=== PATIENT | female | born 1985 | race African-American/Black ===

== ENCOUNTER 2019-04-26 13:27 | Emergency (ER) | payer MEDICAID ==
[~2019-04-26] VITALS: Ht 172.7 cm; Wt 63.5 kg
[2019-04-26 13:27] VITALS: BP 163/107
--- NOTE | 2019-04-26 13:27 | NUR ---
33/F brought in by ambulance from home, c/o multiple n/v since last night. Reports eating tacos from [employer]. Pt afebrile, denies diarrhea. Pt awake and alert, skin normal color warm and dry, with activing n/v with facial grimacing, rr even and unlabored. Lung sounds clear BL. BS active x4, abd soft flat nontender. Hx cyclic vomiting syndrome (last episode 2 years ago); cannabinoid use (reports not today) denies rx
--- NOTE | 2019-04-26 13:27 | NUR ---
Patient BIBA BLS, transferred to bed 3. RN evaluating patient at bedside.
--- NOTE | 2019-04-26 14:30 | NUR ---
PT IS RESTING IN THE BED W/ VSS. PT IS ON THE MONITOR.
[2019-04-26] MEDS ORDERED: NACL 0.9% 1,000 ML IV SCH (15:06)
[2019-04-26] MEDS ORDERED: MORPHINE SULFATE 4 MG/ML SYR IVP ONE ×2 (15:10→17:50)
[2019-04-26] MEDS ORDERED: LORazepam 2 MG/ML VIAL IVP ONE (15:10)
[2019-04-26] MEDS ORDERED: ONDANSETRON 4 MG/2 ML VIAL IVP ONE ×2 (15:10→17:40)
--- NOTE | 2019-04-26 15:42 | NUR ---
RESPIRATORY CARE ASSISTANT AT BEDSIDE
--- NOTE | 2019-04-26 15:55 | NUR ---
PT STATES FEELING BETTER AT THIS TIME.
[2019-04-26 16:01] LABS: BASOPHILS % (AUTO) 0.4 % (0.0-2.0); HEMATOCRIT 40.7 % (36-48); HEMOGLOBIN 13.8 g/dL (12.0-16.0); LYMPHOCYTES # (AUTO) 0.7 K/uL (2.5-16.5); LYMPHOCYTES % (AUTO) 9.5 % (20.5-51.1); MEAN CORPUSCULAR HEMOGLOBIN 30 pg (27-31); MEAN CORPUSCULAR HGB CONC 34 g/dL (33-37); MEAN CORPUSCULAR VOLUME 88.1 fL (80-94); MONOCYTES # (AUTO) 0.4 K/uL (0.8-1.0); MONOCYTES % (AUTO) 5.8 % (1.7-9.3); NEUTROPHILS # (AUTO) 6.4 K/uL (1.8-7.7); NEUTROPHILS % (AUTO) 84.3 % (42.2-75.2); PLATELET COUNT (AUTO) 210 K/uL (140-450); RED BLOOD CELL COUNT(AUTO) 4.62 MIL/uL (4.20-5.40); RED CELL DISTRIBUTION WIDTH 13.7 % (11.6-13.7); WHITE BLOOD COUNT (AUTO) 7.5 K/uL (4.8-10.8)
[2019-04-26 16:02] LABS: APPEARANCE,URINE CLEAR (CLEAR); BILIRUBIN,URINE NEGATIVE (NEGATIVE); BLOOD, URINE NEGATIVE (NEGATIVE); COLOR,URINE YELLOW (YELLOW); LEUKOCYTE ESTERASE ,URINE NEGATIVE (NEGATIVE); NITRITE, URINE NEGATIVE (NEGATIVE); UGLUCOSE NEGATIVE (NEGATIVE)
[2019-04-26 16:17] LABS: ALBUMIN 4.2 g/dL (3.4-5.0); CARBON DIOXIDE 24.8 mmol/L (21-32); CREATININE 0.9 mg/dL (0.6-1.3); POTASSIUM 3.8 mmol/L (3.5-5.1); TOTAL BILIRUBIN 0.4 mg/dL (0.0-1.0)
--- NOTE | 2019-04-26 17:00 | NUR ---
PT IS RESTING IN THE BED WI/ VSS. PT IS ON MONITOR.
[2019-04-26] MEDS ORDERED: ONDANSETRON 4 MG/2 ML VIAL ONE (17:39)
[2019-04-26] MEDS ORDERED: MORPHINE SULFATE 4 MG/ML SYR ONE (17:49)
[2019-04-26 18:10] VITALS: BP 157/103
--- NOTE | 2019-04-26 18:10 | NUR ---
Patient discharged with v/s stable. Written and verbal after care instructions given and explained. Patient alert, oriented and verbalized understanding of instructions. Ambulatory with steady gait. All questions addressed prior to discharge. ID band removed. Patient advised to follow up with PMD. Rx of Zofran, Phenergan, and Ativan given. Patient educated on indication of medication including possible reaction and side effects. Opportunity to ask questions provided and answered.
== END 2019-04-26 18:10 | disposition home or self-care (01) ==
LOC: MERGE 13:27 → MED 13:27
DX: R11.2 Nausea with vomiting, unspecified (principal); R10.9 Unspecified abdominal pain; R30.0 Dysuria; F17.210 Nicotine dependence, cigarettes, uncomplicated; Z98.890 Other specified postprocedural states
CPT/HCPCS: 36415; 80053; 81003; 81025; 83690; 85025; 96361; 96374; 96375; 96376; 99284; J2060; J2270; J2405; J7030

== ENCOUNTER 2019-07-03 16:34 | Emergency (ER) | payer OTHER, SELFPAY ==
[~2019-07-03] VITALS: Ht 172.7 cm; Wt 72.6 kg
[2019-07-03 16:39] VITALS: BP 183/110
--- NOTE | 2019-07-03 16:45 | NUR ---
PT C/O ABD PAIN X2 DAYS WITH NAUSEA AND VOMITING. PTS STATES SHE HAS SUBJECTIVE FEVER; AFEBRILE AT THIS TIME. PT STATES SHE TOOK ZOFRAN THIS MORNING. PATIENT STATES PAIN OF 10/10 AT THIS TIME; VSS; PATIENT POSITIONED FOR COMFORT; HOB ELEVATED; BEDRAILS UP X2; BED DOWN. ER MADE AWARE OF PT STATUS. PT IS ON THE MONITOR IN THE ISOLATION ROOM. Addendum: 07/03/19 at 1919 by Amadesa PT DENIES COUGH, SORE THROAT, RUNNY NOSE, CP, SOB, OR DIARRHEA. 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
--- NOTE | 2019-07-03 17:04 | NUR ---
PT EVALUATED BY PA
[2019-07-03] MEDS ORDERED: NACL 0.9% 1,000 ML IV ONE (17:05)
[2019-07-03] MEDS: METOCLOPRAMIDE 10 MG/2 ML INJ VIAL IVP ONE ×2 (17:05→18:26)
[2019-07-03] MEDS: KETOROLAC 30 MG/ML VIAL IVP ONE ×2 (17:15→18:26)
--- NOTE | 2019-07-03 17:42 | NUR ---
COVID SWAB OBTAINED AT BEDSIDE AND SENT TO THE LAB WITH PUI PAPERWORK.
[2019-07-03 17:44] LABS: BASOPHILS % (AUTO) 0.4 % (0.0-2.0); EOSINOPHILS % (AUTO) 0.2 % (0.0-4.0); HEMATOCRIT 46.6 % (36-48); HEMOGLOBIN 15.5 g/dL (12.0-16.0); LYMPHOCYTES % (AUTO) 8.9 % (20.5-51.1); MEAN CORPUSCULAR HEMOGLOBIN 30 pg (27-31); MEAN CORPUSCULAR HGB CONC 33 g/dL (33-37); MEAN CORPUSCULAR VOLUME 91.2 fL (80-94); MONOCYTES # (AUTO) 0.6 K/uL (0.8-1.0); MONOCYTES % (AUTO) 5.2 % (1.7-9.3); NEUTROPHILS # (AUTO) 9.5 K/uL (1.8-7.7); NEUTROPHILS % (AUTO) 85.3 % (42.2-75.2); PLATELET COUNT (AUTO) 296 K/uL (140-450); RED BLOOD CELL COUNT(AUTO) 5.12 MIL/uL (4.20-5.40); RED CELL DISTRIBUTION WIDTH 14.7 % (11.6-13.7); WHITE BLOOD COUNT (AUTO) 11.1 K/uL (4.8-10.8)
--- NOTE | 2019-07-03 17:51 | NUR ---
EKG PERFORMED AT BEDSIDE
[2019-07-03 18:08] LABS: ANION GAP 19.8 (8-16); CARBON DIOXIDE 21.8 mmol/L (21-32); CREATININE 0.9 mg/dL (0.6-1.3); POTASSIUM 3.6 mmol/L (3.5-5.1); TOTAL BILIRUBIN 0.6 mg/dL (0.0-1.0)
[2019-07-03] MEDS ORDERED: HALOPERIDOL IM 5 MG/ML VIAL IM ONE (18:15)
[2019-07-03] MEDS ORDERED: MORPHINE SULFATE 2 MG/ML SYR IVP ONE (19:00)
[2019-07-03] MEDS ORDERED: ACETAMINOPHEN EXTRA STRENGTH 500 MG TAB PO ONE (19:00)
--- NOTE | 2019-07-03 19:00 | NUR ---
PT HAS FEVER 100.1 BP 168/115 MMHG, AND STATES SHE HAS 10/10 LOWER ABDOMINAL PAIN. TANISHA CACERES NOTIFIED.
--- NOTE | 2019-07-03 19:19 | NUR ---
Pt report given to YENNY Olson. Transfer of care at this time.
--- NOTE | 2019-07-03 19:19 | NUR ---
REPORT RECEIVED FROM CLEOPATRA RAMON, TRANSFER OF CARE AT THIS TIME
[2019-07-03 19:29] LABS: APPEARANCE,URINE CLEAR (CLEAR); BILIRUBIN,URINE NEGATIVE (NEGATIVE); BLOOD, URINE NEGATIVE (NEGATIVE); COLOR,URINE YELLOW (YELLOW); LEUKOCYTE ESTERASE ,URINE NEGATIVE (NEGATIVE); NITRITE, URINE NEGATIVE (NEGATIVE); UGLUCOSE NEGATIVE (NEGATIVE)
--- NOTE | 2019-07-03 21:03 | NUR ---
PT IS RESTING IN BED, PAIN LEVEL REPORTED 3/10, PT CONTINUES TO FEEL NAUSEOUS. VSS. ABLE TO AMBULATE BUT FEELS WEAK.
[2019-07-03 21:07] VITALS: BP 141/105
--- NOTE | 2019-07-06 03:56 | NUR ---
Lab called for pt SARS-Cov-2 result, negative. Pt lab result shown to Dr Zhao and advise to forward the lab result to the infection control box/done.
== END 2019-07-03 21:08 | disposition home or self-care (01) ==
LOC: EEVIPCON 16:34 → MED 16:34
DX: R11.15 Cyclical vomiting syndrome unrelated to migraine (principal); R11.2 Nausea with vomiting, unspecified; R10.9 Unspecified abdominal pain; I10 Essential (primary) hypertension; Z20.828 Contact with and (suspected) exposure to other viral communicable diseases; Z98.890 Other specified postprocedural states
CPT/HCPCS: 36415; 80053; 81003; 81025; 83690; 84702; 85025; 87635; 93005; 96361; 96372; 96374; 96375; 99284; J1630; J1885; J2270; J2765; J7030

== ENCOUNTER 2019-07-18 12:07 | Emergency (ER) | payer OTHER, SELFPAY ==
[~2019-07-18] VITALS: Ht 172.7 cm; Wt 63.5 kg
[2019-07-18 12:12] VITALS: BP 132/77
[2019-07-18 13:12] VITALS: BP 132/77
== END 2019-07-18 13:12 | disposition home or self-care (01) ==
LOC: MED 12:07
DX: S01.81XA Laceration without foreign body of other part of head, initial encounter (principal); I10 Essential (primary) hypertension; Z98.890 Other specified postprocedural states; W19.XXXA Unspecified fall, initial encounter; Y93.89 Activity, other specified; Y92.89 Other specified places as the place of occurrence of the external cause; Y99.8 Other external cause status
CPT/HCPCS: 90471; 90715; 99283

== ENCOUNTER 2019-07-18 17:27 | Emergency (ER) | payer OTHER, SELFPAY ==
[~2019-07-18] VITALS: Ht 172.7 cm; Wt 63.5 kg
[2019-07-18 17:34] VITALS: BP 124/68
[2019-07-18] MEDS ORDERED: BACITRACIN OINT 500 UNITS/GM PKT TP ONE (19:50)
[2019-07-18 20:20] VITALS: BP 124/68
== END 2019-07-18 20:20 | disposition home or self-care (01) ==
LOC: MED 17:27
DX: S01.81XA Laceration without foreign body of other part of head, initial encounter (principal); I10 Essential (primary) hypertension; Z48.00 Encounter for change or removal of nonsurgical wound dressing; X58.XXXA Exposure to other specified factors, initial encounter; Y93.89 Activity, other specified; Y92.89 Other specified places as the place of occurrence of the external cause; Y99.8 Other external cause status
CPT/HCPCS: 99283

== ENCOUNTER 2019-09-16 10:45 | Emergency (ER) | payer OTHER, SELFPAY ==
[~2019-09-16] VITALS: Ht 172.7 cm; Wt 59.0 kg
[2019-09-16] MEDS ORDERED: NACL 0.9% 1,000 ML IV ONE (10:49)
[2019-09-16 10:50] VITALS: BP 233/126
[2019-09-16] MEDS ORDERED: LORazepam 2 MG/ML VIAL IVP ONE (10:50)
[2019-09-16] MEDS ORDERED: HALOPERIDOL IM 5 MG/ML VIAL IM ONE (10:50)
--- NOTE | 2019-09-16 10:57 | NUR ---
Patient being evaluated by DR STANFORD at TRIAGE ROOM.
--- NOTE | 2019-09-16 11:00 | NUR ---
VOMITING AND UNABLE TO GET FULL TRIAGE ASSESSMENT. PT WAS NOT ANSWERING ALL QUESTIONS.
--- NOTE | 2019-09-16 11:00 | NUR ---
PT WHEELCHAIRED TO BED 6
--- NOTE | 2019-09-16 11:02 | NUR ---
assistant nurse manager at bedside for blood draw
--- NOTE | 2019-09-16 11:05 | NUR ---
PT STATES UNABLE TO URINATE, ERMD MADE AWARE
--- NOTE | 2019-09-16 11:10 | NUR ---
33 YEAR OLD FEMALE COMPLAINS OF ABDOMINAL PAIN, NAUSEA, AND VOMIT X TODAY. PT ALERT AND AWAKE, BREATHING LABORED AND EVEN FROM PAIN, SKIN WARM AND DRY. PT VOMITTED LARGE AMOUNT IN TRIAGE. PT PLACED ON MONITOR, BP 219/108, HR 62. SPO2 100%, RR 25. ERMD MADE AWARE. PMH - HTN, CYCLIC VOMITTING SYNDROME ALLERGIES - NKA
[2019-09-16 11:30] LABS: BASOPHILS % (AUTO) 0.4 % (0.0-2.0); HEMATOCRIT 45.7 % (36-48); HEMOGLOBIN 15.2 g/dL (12.0-16.0); LYMPHOCYTES # (AUTO) 0.5 K/uL (2.5-16.5); MEAN CORPUSCULAR HEMOGLOBIN 30 pg (27-31); MEAN CORPUSCULAR HGB CONC 33 g/dL (33-37); MEAN CORPUSCULAR VOLUME 90.6 fL (80-94); MONOCYTES # (AUTO) 0.2 K/uL (0.8-1.0); MONOCYTES % (AUTO) 2.9 % (1.7-9.3); NEUTROPHILS # (AUTO) 5.4 K/uL (1.8-7.7); NEUTROPHILS % (AUTO) 88.7 % (42.2-75.2); PLATELET COUNT (AUTO) 261 K/uL (140-450); RED BLOOD CELL COUNT(AUTO) 5.05 MIL/uL (4.20-5.40); RED CELL DISTRIBUTION WIDTH 14.7 % (11.6-13.7)
--- NOTE | 2019-09-16 11:34 | NUR ---
PT STATES SHE IS STILL UNABLE TO URINATE. BP 219/108, HR 65. ERMD AWARE OF VS. PT DENIES CHEST PAIN OR HEADACHE. PT IS LETHARGIC, HAS TO BE STIMULATED TO ASK QUESTIONS THEN GOES BACK TO SLEEP
[2019-09-16 11:50] LABS: POTASSIUM 4.2 mmol/L (3.5-5.1)
--- NOTE | 2019-09-16 11:52 | NUR ---
BP 216/102, HR 77. PT RESTING WITH EYES CLOSED, BREATHING EVEN AND UNLABORED
--- NOTE | 2019-09-16 11:58 | NUR ---
BP 215/110, HR 72. ERMD MADE AWARE. PT STILL RESTING, ONLY AWAKENS WHEN STIMULUS, DOES NOT WANT TO PEE
[2019-09-16 12:14] LABS: ANION GAP 24.2 (8-16); CREATININE 0.9 mg/dL (0.6-1.3); TOTAL BILIRUBIN 0.8 mg/dL (0.0-1.0)
[2019-09-16 12:15] LABS: ALBUMIN 4.6 g/dL (3.4-5.0)
--- NOTE | 2019-09-16 12:56 | NUR ---
PATIENT RESTING WITH EYES CLOSED, BREATHING EVEN AND UNLABORED. ERMD MADE AWARE OF CURRENT VS CHARTED
--- NOTE | 2019-09-16 13:31 | NUR ---
PT UNABLE TO URINATE, ERMD STATES IT IS FINE TO DISCHARGE WITHOUT URINE. ERMD STATES BP OF 195/102 IS OK WITH HIM FOR DISCHARGE
[2019-09-16 13:35] VITALS: BP 195/102
--- NOTE | 2019-09-16 13:35 | NUR ---
Patient discharged with v/s stable. Written and verbal after care instructions about nausea and vomitting given and explained. Patient verbalized understanding. Ambulatory with steady gait. All questions addressed prior to discharge. Advised to follow up with PMD.
== END 2019-09-16 13:35 | disposition home or self-care (01) ==
LOC: MED 10:45
DX: R11.15 Cyclical vomiting syndrome unrelated to migraine (principal); F17.210 Nicotine dependence, cigarettes, uncomplicated; F12.90 Cannabis use, unspecified, uncomplicated; I10 Essential (primary) hypertension; Z98.890 Other specified postprocedural states
CPT/HCPCS: 36415; 80053; 81025; 83690; 85025; 96361; 96372; 96374; 99284; J1630; J2060; J7030

== ENCOUNTER 2019-09-22 00:25 | Emergency (ER) | payer OTHER, SELFPAY ==
[~2019-09-22] VITALS: Ht 175.3 cm; Wt 57.6 kg
[2019-09-22] MEDS ORDERED: NACL 0.9% 1,000 ML IV ONE (00:30)
[2019-09-22 00:36] VITALS: BP 118/80
[2019-09-22 01:07] LABS: BASOPHILS # (AUTO) 0.1 K/uL (0.00-0.22); BASOPHILS % (AUTO) 0.6 % (0.0-2.0); EOSINOPHILS % (AUTO) 0.4 % (0.0-4.0); HEMATOCRIT 45.3 % (36-48); HEMOGLOBIN 14.7 g/dL (12.0-16.0); LYMPHOCYTES # (AUTO) 2.4 K/uL (2.5-16.5); LYMPHOCYTES % (AUTO) 22.9 % (20.5-51.1); MEAN CORPUSCULAR HEMOGLOBIN 30 pg (27-31); MEAN CORPUSCULAR HGB CONC 33 g/dL (33-37); MEAN CORPUSCULAR VOLUME 92.3 fL (80-94); MONOCYTES # (AUTO) 0.6 K/uL (0.8-1.0); MONOCYTES % (AUTO) 5.6 % (1.7-9.3); NEUTROPHILS # (AUTO) 7.4 K/uL (1.8-7.7); NEUTROPHILS % (AUTO) 70.5 % (42.2-75.2); PLATELET COUNT (AUTO) 248 K/uL (140-450); RED CELL DISTRIBUTION WIDTH 14.1 % (11.6-13.7); WHITE BLOOD COUNT (AUTO) 10.5 K/uL (4.8-10.8)
[2019-09-22 01:38] LABS: ALBUMIN 3.9 g/dL (3.4-5.0); ANION GAP 18.5 (8-16); ASPARTATE AMINOTRANSFERASE 14 U/L (15-37); CARBON DIOXIDE 23.2 mmol/L (21-32); CHLORIDE 100 mmol/L (98-107); CREATININE 1.1 mg/dL (0.6-1.3); GFR ARICAN-AMERICAN 75 mL/min (>90); GLUCOSE 133 mg/dL (74-106); SODIUM SERUM 139 mmol/L (136-145); TOTAL BILIRUBIN 0.4 mg/dL (0.0-1.0); UREA NITROGEN, BLOOD 12 mg/dL (7-18)
[2019-09-22 01:39] LABS: ACETAMINOPHEN 150.8 ug/ml (10-30); SALICYLATE < 2.8 mg/dL (2.8-20.0)
[2019-09-22 01:40] LABS: POTASSIUM 2.7 mmol/L (3.5-5.1)
[2019-09-22 01:47] LABS: BARBITURATE, URINE NEGATIVE ng/ml (NEG <=200); BENZODIAZEPINE, URINE POSITIVE ng/mL (NEG <=200); CANNABINOID, URINE POSITIVE ng/mL (NEG <=50); COCAINE, URINE POSITIVE ng/mL (NEG <=300); OPIATE, URINE NEGATIVE ng/mL (NEG <=2000); PHENCYCLIDINE SCREEN,URINE NEGATIVE ng/mL (NEG <=25)
[2019-09-22] MEDS ORDERED: POTASSIUM CHLORIDE 10 MEQ TABER PO ONE (02:00)
[2019-09-22 03:04] VITALS: BP 130/86
== END 2019-09-22 03:55 | disposition left against medical advice (07) ==
LOC: MED 00:25
DX: R89.2 Abnormal level of other drugs, medicaments and biological substances in specimens from other organs, systems and tissues (principal); I10 Essential (primary) hypertension; F17.200 Nicotine dependence, unspecified, uncomplicated; I70.1 Atherosclerosis of renal artery; R11.15 Cyclical vomiting syndrome unrelated to migraine; Z71.6 Tobacco abuse counseling
CPT/HCPCS: 36415; 80053; 80305; 85025; 93005; 99284; G0480; G0482; J7030

== ENCOUNTER 2019-10-29 14:45 | Emergency (ER) | payer OTHER ==
[~2019-10-29] VITALS: Ht 172.7 cm; Wt 59.0 kg
[2019-10-29 14:49] VITALS: BP 153/100
--- NOTE | 2019-10-29 14:55 | NUR ---
W/C TO BED 10
--- NOTE | 2019-10-29 15:11 | NUR ---
33 Y/O FEMALE C/O N/V/D AND GENERALIZED ABD PAIN X 3 DAYS. RESP EVEN AND UNLABORED. DENIES CHEST PAIN, SOB, COUGH. AFEBRILE AT THIS TIME. ABD SOFT/NON DISTENDED. DIARRHEA OCCURRING TODAY. AAOX4. VSS.
[2019-10-29] MEDS ORDERED: FAMOTIDINE 20 MG/2 ML VIAL IVP ONE (15:15)
[2019-10-29] MEDS ORDERED: ONDANSETRON 4 MG/2 ML VIAL IVP ONE (15:15)
[2019-10-29] MEDS ORDERED: HALOPERIDOL IM 5 MG/ML VIAL IM ONE (15:15)
[2019-10-29 16:10] LABS: BASOPHILS # (AUTO) 0.1 K/uL (0.00-0.22); BASOPHILS % (AUTO) 0.6 % (0.0-2.0); HEMATOCRIT 49.7 % (36-48); HEMOGLOBIN 16.3 g/dL (12.0-16.0); LYMPHOCYTES # (AUTO) 1.5 K/uL (2.5-16.5); LYMPHOCYTES % (AUTO) 10.2 % (20.5-51.1); MEAN CORPUSCULAR HEMOGLOBIN 30 pg (27-31); MEAN CORPUSCULAR HGB CONC 33 g/dL (33-37); MEAN CORPUSCULAR VOLUME 89.8 fL (80-94); MONOCYTES # (AUTO) 0.7 K/uL (0.8-1.0); MONOCYTES % (AUTO) 4.9 % (1.7-9.3); NEUTROPHILS # (AUTO) 12.1 K/uL (1.8-7.7); NEUTROPHILS % (AUTO) 84.3 % (42.2-75.2); PLATELET COUNT (AUTO) 307 K/uL (140-450); RED BLOOD CELL COUNT(AUTO) 5.53 MIL/uL (4.20-5.40); RED CELL DISTRIBUTION WIDTH 14.6 % (11.6-13.7); WHITE BLOOD COUNT (AUTO) 14.3 K/uL (4.8-10.8)
[2019-10-29] MEDS: NACL 0.9% 1,000 ML IV SCH (16:22)
[2019-10-29 16:26] LABS: ALBUMIN 4.2 g/dL (3.4-5.0); ANION GAP 18.6 (8-16); CARBON DIOXIDE 22.5 mmol/L (21-32); POTASSIUM 3.1 mmol/L (3.5-5.1); TOTAL BILIRUBIN 0.6 mg/dL (0.0-1.0)
[2019-10-29 17:18] LABS: APPEARANCE,URINE CLEAR (CLEAR); BILIRUBIN,URINE NEGATIVE (NEGATIVE); BLOOD, URINE NEGATIVE (NEGATIVE); LEUKOCYTE ESTERASE ,URINE NEGATIVE (NEGATIVE); NITRITE, URINE NEGATIVE (NEGATIVE); UGLUCOSE NEGATIVE (NEGATIVE)
[2019-10-29 17:24] LABS: COLOR,URINE AMBER (YELLOW)
[2019-10-29] MEDS ORDERED: METOCLOPRAMIDE 10 MG/2 ML INJ VIAL IVP ONE (17:35)
[2019-10-29] MEDS ORDERED: POTASSIUM CHLORIDE 10 MEQ TABER PO ONE (17:35)
[2019-10-29] MEDS ORDERED: NACL 0.9% 500 ML IV ONE (17:35)
[2019-10-29] MEDS ORDERED: MORPHINE SULFATE 2 MG/ML SYR IVP ONE (17:35)
[2019-10-29 17:50] LABS: BARBITURATE, URINE NEGATIVE ng/ml (NEG <=200); BENZODIAZEPINE, URINE POSITIVE ng/mL (NEG <=200); CANNABINOID, URINE POSITIVE ng/mL (NEG <=50); COCAINE, URINE POSITIVE ng/mL (NEG <=300); OPIATE, URINE NEGATIVE ng/mL (NEG <=2000); PHENCYCLIDINE SCREEN,URINE NEGATIVE ng/mL (NEG <=25)
--- NOTE | 2019-10-29 19:11 | NUR ---
RECEIVED REPORT FROM YENNY RAMOS FOR CONTINUITY OF CARE.
--- NOTE | 2019-10-29 19:37 | NUR ---
IV removed, catheter intact and site benign. Applied folded 4x4 gauze and tape to stop bleeding.
--- NOTE | 2019-10-29 19:40 | NUR ---
PER PT AUTHORIZATION JORDAN RUBIN FOR PT TRANSPORTATION. LET PT KNOW SHE WILL BE PICKING HER UP FROM LOBBY IN 30 MINS.
[2019-10-29 19:41] VITALS: BP 149/91
--- NOTE | 2019-10-29 19:41 | NUR ---
Patient discharged with v/s stable. Written and verbal after care instructions given and explained. Patient verbalized understanding. Wheel Chair Assisted to lobby waiting for transportation. All questions addressed prior to discharge. Advised to follow up with PMD.
--- NOTE | 2019-10-30 08:57 | NUR ---
LATE ENTRY-CONFIRMED WITH RN NS INFUSION COMPLETED AT 4923 10/29/19.
== END 2019-10-29 19:41 | disposition home or self-care (01) ==
LOC: MED 14:45
DX: R10.13 Epigastric pain (principal); R11.2 Nausea with vomiting, unspecified; F12.10 Cannabis abuse, uncomplicated; F14.10 Cocaine abuse, uncomplicated; E86.0 Dehydration; E87.6 Hypokalemia; I10 Essential (primary) hypertension; R11.15 Cyclical vomiting syndrome unrelated to migraine; Z98.890 Other specified postprocedural states
CPT/HCPCS: 36415; 80053; 80305; 81003; 83690; 84484; 84703; 85025; 93005; 96361; 96372; 96374; 96375; 99284; J1630; J2270; J2405; J2765; J3490; J7030

== ENCOUNTER 2020-01-11 10:40 | Emergency (ER) | payer OTHER ==
[~2020-01-11] VITALS: Ht 172.7 cm; Wt 59.0 kg
[2020-01-11 10:40] VITALS: BP 194/146
[2020-01-11] MEDS ORDERED: NACL 0.9% 1,000 ML IV ONE (10:50)
--- NOTE | 2020-01-11 10:57 | NUR ---
KIAH BLS from home with c/o vomiting x 3 days. Denies SOB, cough, fever or exposure to COVID-19. C/O abdominal pain 11/30. NKDA, PMH of cyclic vomiting syndrome. A, A, O x4, passive, moving all exts w/o difficulty. Resp even and unlabored, in NAD, VVS x B/P, patient states her B/P is always high. Patient is bleeding, states shes on her period. Patient is malodorous HOB elevated, connected to monitor technician, sinus rhythm 90-99 BPM IV left FA #20g with NS IVF and #20g RFA, saline locked. Patent and flushed Awaiting evaluation/examination by MD, will continue to monitor
[2020-01-11 11:14] LABS: BASOPHILS % (AUTO) 0.5 % (0.0-2.0); EOSINOPHILS % (AUTO) 0.1 % (0.0-4.0); HEMATOCRIT 54.3 % (36-48); LYMPHOCYTES # (AUTO) 1.7 K/uL (2.5-16.5); MEAN CORPUSCULAR HEMOGLOBIN 30 pg (27-31); MEAN CORPUSCULAR HGB CONC 33 g/dL (33-37); MONOCYTES # (AUTO) 0.7 K/uL (0.8-1.0); MONOCYTES % (AUTO) 7.4 % (1.7-9.3); NEUTROPHILS # (AUTO) 7.3 K/uL (1.8-7.7); PLATELET COUNT (AUTO) 234 K/uL (140-450); RED BLOOD CELL COUNT(AUTO) 6.03 MIL/uL (4.20-5.40); RED CELL DISTRIBUTION WIDTH 14.3 % (11.6-13.7); WHITE BLOOD COUNT (AUTO) 9.7 K/uL (4.8-10.8)
[2020-01-11 11:23] LABS: ANION GAP 18.5 (8-16); CARBON DIOXIDE 22.1 mmol/L (21-32); CREATININE 1.1 mg/dL (0.6-1.3); POTASSIUM 3.6 mmol/L (3.5-5.1)
[2020-01-11 11:43] LABS: ALBUMIN 4.3 g/dL (3.4-5.0); TOTAL BILIRUBIN 0.6 mg/dL (0.0-1.0)
[2020-01-11] MEDS ORDERED: KETOROLAC 30 MG/ML VIAL IVP ONE (12:40)
[2020-01-11 14:40] VITALS: BP 181/120
--- NOTE | 2020-01-11 14:40 | NUR ---
Patient medically cleared for discharge by MD. Patient does NOT want to leave, states she still feels sick. IV d/c'd RFA and LFA, manual pressure held, cannulas intact, bleeding controlled. Advised to follow up with PCP or return to ED if symptoms return or worsen. Given copy of discharge instructions and script x2. Patient verbalized understanding of instructions and prescription. Assisted with ambulation to outside, ID band removed. All belongings taken with patient.
--- NOTE | 2020-01-14 02:42 | NUR ---
LATE ENTRY--- NS BOLUS DISCONTINUED AT 1200.
== END 2020-01-11 17:36 | disposition home or self-care (01) ==
LOC: MED 10:40
DX: R11.2 Nausea with vomiting, unspecified (principal); R10.13 Epigastric pain; Z98.890 Other specified postprocedural states
CPT/HCPCS: 36415; 80053; 83690; 85025; 96361; 96374; 99283; J1885; J7030

== ENCOUNTER 2021-05-09 15:25 | Emergency (ER) | payer OTHER ==
[~2021-05-09] VITALS: Ht 172.7 cm; Wt 65.8 kg
--- NOTE | 2021-05-09 15:32 | NUR ---
PT BIBA TAKEN TO ER BED 2.
[2021-05-09 15:39] VITALS: BP 186/116
--- NOTE | 2021-05-09 16:00 | NUR ---
35 Y/O Female, c/o N/V/D for 3 days with lower abd pain. AOX 4, able to make needs known. States she has been having N/V/D x 3 days. Denies any blood in emesis or diarrhea. Abd is soft and tender in lower portion. Denies CP at this time. Pmh: cyclic vomiting syndrome allergies: Denies med: odt zofran 4mg enroute
[2021-05-09] MEDS ORDERED: diphenhydrAMINE 50 MG/ML VIAL IVP ONE (16:10)
[2021-05-09] MEDS ORDERED: NACL 0.9% 1,000 ML IV ONE (16:10)
[2021-05-09] MEDS ORDERED: METOCLOPRAMIDE 10 MG/2 ML INJ VIAL IVP ONE (16:10)
[2021-05-09 16:22] LABS: BASOPHILS % (AUTO) 0.3 % (0.0-2.0); HEMATOCRIT 46.7 % (36-48); HEMOGLOBIN 15.9 g/dL (12.0-16.0); LYMPHOCYTES # (AUTO) 1.1 K/uL (2.5-16.5); LYMPHOCYTES % (AUTO) 8.1 % (20.5-51.1); MEAN CORPUSCULAR HEMOGLOBIN 30 pg (27-31); MEAN CORPUSCULAR HGB CONC 34 g/dL (33-37); MEAN CORPUSCULAR VOLUME 89.2 fL (80-94); MONOCYTES # (AUTO) 0.5 K/uL (0.8-1.0); NEUTROPHILS # (AUTO) 11.9 K/uL (1.8-7.7); NEUTROPHILS % (AUTO) 87.6 % (42.2-75.2); PLATELET COUNT (AUTO) 398 K/uL (140-450); RED BLOOD CELL COUNT(AUTO) 5.24 MIL/uL (4.20-5.40); RED CELL DISTRIBUTION WIDTH 14.1 % (11.6-13.7); WHITE BLOOD COUNT (AUTO) 13.6 K/uL (4.8-10.8)
--- NOTE | 2021-05-09 17:10 | NUR ---
PT ENCOURAGED TO PROVIDE URINE SAMPLE. PT STATES SHE IS UNABLE TO URINATE AT THIS TIME.
[2021-05-09 17:12] LABS: ALBUMIN 4.3 g/dL (3.4-5.0); ANION GAP 23.9 (8-16); CARBON DIOXIDE 18.1 mmol/L (21-32); CREATININE 0.7 mg/dL (0.6-1.3); TOTAL BILIRUBIN 0.5 mg/dL (0.0-1.0)
--- NOTE | 2021-05-09 17:44 | NUR ---
[facility] NEW ORDERS NOTED AND CARRIED OUT.
--- NOTE | 2021-05-09 18:04 | NUR ---
LAB AT BEDSIDE TO DRAW BLOOD REDRAW
[2021-05-09] MEDS ORDERED: LABETALOL 100 MG/20 ML VIAL IVP ONE (18:05)
[2021-05-09] MEDS ORDERED: MORPHINE SULFATE 4 MG/ML SYR IVP ONE (18:05)
[2021-05-09] MEDS ORDERED: ONDANSETRON 4 MG/2 ML VIAL IVP ONE (18:05)
--- NOTE | 2021-05-09 18:37 | NUR ---
US AT BEDSIDE TO PERFORM PROCEDURE
--- NOTE | 2021-05-09 18:52 | NUR ---
TECH AYA AT BEDSIDE TO COMPLETE EKG
[2021-05-09 18:56] LABS: ANION GAP 16.9 (8-16); CARBON DIOXIDE 23.2 mmol/L (21-32); CREATININE 0.9 mg/dL (0.6-1.3); POTASSIUM 3.1 mmol/L (3.5-5.1)
[2021-05-09] MEDS ORDERED: POTASSIUM CHL 20 MEQ/NACL 0.9% 1,000 ML IV ONE (19:10)
--- NOTE | 2021-05-09 20:36 | NUR ---
ERMD AT BEDSIDE PLACING ULTRASOUNDED GUIDED IV
[2021-05-09] MEDS ORDERED: POTASSIUM CHLORIDE 10 MEQ TABER PO ONE (20:45)
--- NOTE | 2021-05-09 21:00 | NUR ---
LATE ENTRY-RN JULIETTE GAVE NACL 0.9%-KCL AT 100ML/HR-DISCONTINUED 05/10/21 AT 5AM-TOTAL VOLUME INFUSED 800ML-NADR
[2021-05-09] MEDS ORDERED: HALOPERIDOL IM 5 MG/ML VIAL IM ONE (21:05)
--- NOTE | 2021-05-09 21:22 | NUR ---
SWABBED PATIENT AND SENT TO LAB RECEIVED BY [employer] TECH
--- NOTE | 2021-05-09 21:45 | NUR ---
SPOKE WITH JADYN TUTTLE FOR UPDATES ON PATIENT. Addendum: 05/09/21 at 8494 by [email or web address] PER PATIENT IT'S OKAY TO RECEIVE AND TALK ABOUT PATIENT INFORMATION TO JADYN TUTTLE #[phone]
--- NOTE | 2021-05-09 22:02 | NUR ---
CASE MANAGEMENT RADHA CALLED AND SPOKE ABOUT PATIENT. AND THE TX TO [facility].
--- NOTE | 2021-05-09 22:08 | NUR ---
INFORMED PATIENT THAT INSURANCE WANTS TO SEND THEM TO [facility] PATIENT SAID YES THAT'S FINE AND ALSO ASKED IF PATIENT WOULD LIKE TO HAVE COUSIN CONTACTED AND SAID THAT MOTHER IS HER EMERGENCY CONTACT AND THEY CAN TALK AMONGST THEMSELVES.
--- NOTE | 2021-05-10 00:33 | NUR ---
Patient appears to be resting comfortably in bed- low fowlers, and eyes closed. Vital Signs within normal limits. Respirations even and unlabored. Safety measures are in place, attached to the monitor, and will continue to monitor patient.
--- NOTE | 2021-05-10 01:48 | NUR ---
patient ambulated to the bathroom with assist.
--- NOTE | 2021-05-10 01:56 | NUR ---
patient back from bathroom. patient connected back onto satellite project site monitor and fluids. safety measures are in place, and will continue to monitor patient.
--- NOTE | 2021-05-10 01:58 | NUR ---
per ERMD patient is okay to have clear liquid.-- provided apple juice and a red jello.
[2021-05-10] MEDS ORDERED: MORPHINE SULFATE 4 MG/ML SYR IVP ONE (02:05)
[2021-05-10] MEDS ORDERED: ONDANSETRON 4 MG/2 ML VIAL IVP ONE (02:05)
--- NOTE | 2021-05-10 04:04 | NUR ---
Patient to be transferred to [facility]. Is being transferred due to insurance purposes. Receiving facility has accepting physician and available space. ER physician has signed transfer form. Patient or responsible libertarian has agreed to transfer and signed form. Patient belongings inventoried and will be sent with patient. Copy of nursing notes, lab reports, EKG, Physicians Orders and X-rays to be sent with patient. Report called to Mona RAMON at receiving facility. [facility] ambulance service has been called for transfer. ETA is 60minutes.
--- NOTE | 2021-05-10 04:58 | NUR ---
[facility] AT BEDSIDE
[2021-05-10 05:18] VITALS: BP 123/70
--- NOTE | 2021-05-10 05:18 | NUR ---
Tim rodríguez in ED - 05/10/21 at 0519 by GLADYS PT TAKEN BY [facility] TO [facility] 0530
--- NOTE | 2021-05-10 05:18 | NUR ---
pt tx to [facility] via [facility] Addendum: 05/10/21 at 0519 by ELIZABETH called [facility] to informa that patient is being transferred to the facility.
== END 2021-05-10 05:18 | disposition short-term general hospital (02) ==
LOC: MED 15:25
DX: R11.2 Nausea with vomiting, unspecified (principal); Z20.822 Contact with and (suspected) exposure to COVID-19; R10.30 Lower abdominal pain, unspecified; D21.9 Benign neoplasm of connective and other soft tissue, unspecified; N83.201 Unspecified ovarian cyst, right side; R03.0 Elevated blood-pressure reading, without diagnosis of hypertension; F12.90 Cannabis use, unspecified, uncomplicated
CPT/HCPCS: 36415; 76856; 80048; 80053; 83605; 83690; 84703; 85025; 87426; 93005; 96361; 96372; 96374; 96375; 96376; 99285; J1200; J1630; J2270; J2405; J2765; J3490; J7030; Q0092

== ENCOUNTER 2021-05-12 18:12 | Emergency (ER) | payer OTHER ==
[~2021-05-12] VITALS: Ht 172.7 cm; Wt 59.0 kg
[2021-05-12 18:12] VITALS: BP 186/103
--- NOTE | 2021-05-12 18:12 | NUR ---
KIAH FROM HOME, TAKEN TO ER BED 12
[2021-05-12] MEDS ORDERED: METOCLOPRAMIDE 10 MG/2 ML INJ VIAL IVP ONE (18:25)
[2021-05-12] MEDS ORDERED: KETOROLAC 15 MG/ML VIAL IVP ONE (18:25)
[2021-05-12] MEDS ORDERED: NACL 0.9% 1,000 ML IV ONE (18:50)
--- NOTE | 2021-05-12 19:07 | NUR ---
LABS AT BEDSIDE
--- NOTE | 2021-05-12 19:08 | NUR ---
35 Y/O FEMALE BIBA WET AND SHIVERING. C/O OF SHARP ABDOMINAL PAIN, RADIATING TOWARDS THE ENTIRE ABDOMEN. GUARDING BEHAVIOR NOTED. N/V X4 WITHIN 30 MINUTES, SALIVA MOSTLY. PAIN NOTED UPON PALPATION AND AT REST. PT HX OF FIBROID OVARIAN CYSTS NOTED LAST WEEK AND TO BE SCHEDULED FOR SURGERY AT [facility]. PT STATES THAT THEY WERE TAKING A SHOWER, AND PASSED OUT FROM THE PAIN. DOES NOT RECALL IF THEY HIT THEIR HEAD. NO BRUISES, NO DISTENTION, NO BLEEDING NOTED. PMH; OVARIAN CYSTS NKA
--- NOTE | 2021-05-12 19:25 | NUR ---
Pt report given to ANUPAMA RAMON. Transfer of care at this time.
--- NOTE | 2021-05-12 19:57 | NUR ---
PT SITTING IN BED W BED LOCKED IN LOWEST POSITION. X2 SIDERAILS UP FOR PT SAFETY. PT C/O OF ONGOING ABDOMINAL PAIN, N/V. PT CURRENTLY VOMITING, RECENTLY MEDICATED FOR NAUSEA. PT DENIES ANY OTHER SYMPTOMS. PT HYPERTENSIVE BUT OTHER DIALLO VSS. WILL CONTINUE TO MONITOR.
[2021-05-12] MEDS ORDERED: KETOROLAC 15 MG/ML VIAL ONE (20:04)
--- NOTE | 2021-05-12 20:18 | NUR ---
PT AT CT.
[2021-05-12 20:19] LABS: BASOPHILS # (AUTO) 0.1 K/uL (0.00-0.22); BASOPHILS % (AUTO) 0.4 % (0.0-2.0); HEMATOCRIT 45.8 % (36-48); HEMOGLOBIN 15.3 g/dL (12.0-16.0); LYMPHOCYTES # (AUTO) 1.6 K/uL (2.5-16.5); LYMPHOCYTES % (AUTO) 12.6 % (20.5-51.1); MEAN CORPUSCULAR HEMOGLOBIN 30 pg (27-31); MEAN CORPUSCULAR HGB CONC 33 g/dL (33-37); MEAN CORPUSCULAR VOLUME 89.3 fL (80-94); MONOCYTES # (AUTO) 0.8 K/uL (0.8-1.0); MONOCYTES % (AUTO) 5.9 % (1.7-9.3); NEUTROPHILS # (AUTO) 10.5 K/uL (1.8-7.7); NEUTROPHILS % (AUTO) 81.1 % (42.2-75.2); PLATELET COUNT (AUTO) 256 K/uL (140-450); RED BLOOD CELL COUNT(AUTO) 5.13 MIL/uL (4.20-5.40); WHITE BLOOD COUNT (AUTO) 12.9 K/uL (4.8-10.8)
[2021-05-12 20:38] LABS: ALBUMIN 4.4 g/dL (3.4-5.0); ANION GAP 19.8 (8-16); CARBON DIOXIDE 21.4 mmol/L (21-32); CREATININE 0.9 mg/dL (0.6-1.3); POTASSIUM 3.2 mmol/L (3.5-5.1); TOTAL BILIRUBIN 1.1 mg/dL (0.0-1.0)
--- NOTE | 2021-05-12 20:45 | NUR ---
PT REPORTS FEELING BETTER, DENIES ONGOING NAUSEA, NO VOMITING. PT DENIES ANY ABDOMINAL PAIN. WILL CONTINUE TO MONITOR.
[2021-05-12] MEDS ORDERED: POTASSIUM CHLORIDE 10 MEQ TABER PO ONE ×2 (20:50→21:08)
--- NOTE | 2021-05-12 21:12 | NUR ---
PT DROPPED X1 K+ TAB, RE-DRAWN FROM PIXUS AND ADMINISTERED.
--- NOTE | 2021-05-12 22:20 | NUR ---
MUNA SWAB COLLECTED FROM PT NARES AND SENT TO LAB.
[2021-05-12] MEDS ORDERED: ACETAMINOPHEN 325 MG TAB PO ONE (22:30)
--- NOTE | 2021-05-12 22:32 | NUR ---
PT C/O ABDOMINAL PAIN AND N/V. ERMD MADE AWARE.
[2021-05-12] MEDS ORDERED: HALOPERIDOL IM 5 MG/ML VIAL IVP ONE (22:35)
[2021-05-12] MEDS ORDERED: diphenhydrAMINE 50 MG/ML VIAL IVP ONE (22:35)
--- NOTE | 2021-05-12 23:20 | NUR ---
PT BP 192/120 PT DENIES ANY HEAD ACHEM DIZZY NESS, BLURRY VISION OR CHEST PAIN. PT REPORTS ONGOING ABDOMINAL PAIN. PT RECENTLY MEDICATED FOR PAIN. ERMD AWARE OF PT STATUS PER ERMD TO CONTINUE TO MONITOR PT VS.
--- NOTE | 2021-05-12 23:22 | NUR ---
ASSISTED PT TO BED PAEZ. PER PT REPORTS SHE IS NORMALLY AMBULATORY BUT WANTS TO USE BEDPAN D/T ABD PAIN.
[2021-05-12 23:28] LABS: APPEARANCE,URINE CLEAR (CLEAR); BILIRUBIN,URINE NEGATIVE (NEGATIVE); BLOOD, URINE NEGATIVE (NEGATIVE); COLOR,URINE YELLOW (YELLOW); LEUKOCYTE ESTERASE ,URINE NEGATIVE (NEGATIVE); NITRITE, URINE NEGATIVE (NEGATIVE); UGLUCOSE NEGATIVE (NEGATIVE)
--- NOTE | 2021-05-12 23:53 | NUR ---
PT APPEARS TO BE RESTING IN R LATERAL POSITION W BREATHING EVEN AND UNLABORED. BP IMPROVEMENT AT THIS TIME. WILL CONTINUE TO MONITOR.
--- NOTE | 2021-05-13 01:17 | NUR ---
PT AMBULATED TO BATHROOM W STEADY GAIT. PT C/O 11/30 ABDOMINAL PAIN AND NAUSE, ERMD MADE AWARE.
[2021-05-13] MEDS ORDERED: ONDANSETRON 4 MG/2 ML VIAL IVP ONE (01:20)
[2021-05-13] MEDS ORDERED: MORPHINE SULFATE 4 MG/ML SYR IVP ONE (01:20)
[2021-05-13 01:24] LABS: BARBITURATE, URINE NEGATIVE ng/ml (NEG <=200); BENZODIAZEPINE, URINE NEGATIVE ng/mL (NEG <=200); CANNABINOID, URINE POSITIVE ng/mL (NEG <=50); COCAINE, URINE POSITIVE ng/mL (NEG <=300); OPIATE, URINE NEGATIVE ng/mL (NEG <=2000); PHENCYCLIDINE SCREEN,URINE NEGATIVE ng/mL (NEG <=25)
--- NOTE | 2021-05-13 01:55 | NUR ---
L FOOT IV INFILTRATED, REMOVED. NEW IV PLACED IN R HAND. Addendum: 05/13/21 at 0155 by MEDMATTK PT MEDICATED FOR PAIN AND NAUSEA.
--- NOTE | 2021-05-13 01:55 | NUR ---
WET MOUNT COLLECTED AND SENT TO LAB.
[2021-05-13] MEDS ORDERED: METR-435 PO (02:34)
[2021-05-13] MEDS ORDERED: ONDA-188 SL (02:34)
[2021-05-13 02:40] VITALS: BP 116/72
--- NOTE | 2021-05-13 02:40 | NUR ---
Patient discharged with v/s stable. Written and verbal after care instructions given and explained. Patient alert, oriented and verbalized understanding of instructions. Ambulatory with steady gait. All questions addressed prior to discharge. ID band removed. Patient advised to follow up with PMD. Rx of METRONIDAZOLE, ZOFRAN given. Patient educated on indication of medication including possible reaction and side effects. Opportunity to ask questions provided and answered. D/C DONE BY ALETHEA OZUNA.
--- NOTE | 2021-05-13 03:06 | NUR ---
patient to lobby. denied bus pass.
== END 2021-05-13 02:40 | disposition home or self-care (01) ==
LOC: MED 18:12
DX: N83.291 Other ovarian cyst, right side (principal); R11.2 Nausea with vomiting, unspecified; I10 Essential (primary) hypertension; D25.9 Leiomyoma of uterus, unspecified; F12.10 Cannabis abuse, uncomplicated; Z20.822 Contact with and (suspected) exposure to COVID-19
CPT/HCPCS: 36415; 70450; 74176; 80053; 80305; 81003; 82150; 83690; 84484; 85025; 87210; 87426; 93005; 96361; 96374; 96375; 99285; J1200; J1630; J1885; J2270; J2405; J2765; J7030

== ENCOUNTER 2021-10-23 15:41 | Emergency (ER) | payer OTHER ==
[~2021-10-23] VITALS: Ht 170.2 cm; Wt 66.7 kg
[~2021-10-23 15:41] MED LIST: METR-435 PO; ONDA-188 SL
[2021-10-23 15:53] VITALS: BP 188/96
--- NOTE | 2021-10-23 15:58 | NUR ---
35 y/o female biba from home, pt presents to ed with pelvic pain that started 3 days ago and worsened today. pt states pain is primarily on right side with n/v and loss of appetite. amr started line 20g right forearm and was given 4mg zofran ivp. pt reports taking reglan and zofran before she came and reports no relief. reports last time she smoked marijuana was 1 week ago, usually smokes a pack a day. pt a&ox4, states she is unable to ambulate due to the pain. abd soft/tender/flat/guarding, abd sounds x4 normoactive. pmh: ovarian cyst, cyclic vomiting syndrome nka
[2021-10-23] MEDS ORDERED: NACL 0.9% 1,000 ML IV ONE (16:00)
[2021-10-23] MEDS ORDERED: METOCLOPRAMIDE 10 MG/2 ML INJ VIAL IVP ONE (16:00)
[2021-10-23] MEDS ORDERED: diphenhydrAMINE 50 MG/ML VIAL IVP ONE (16:00)
[2021-10-23] MEDS ORDERED: MORPHINE SULFATE 4 MG/ML SYR IVP ONE (16:10)
--- NOTE | 2021-10-23 18:31 | NUR ---
Patient appears to be resting comfortably in bed. Vital Signs within normal limits. Respirations even and unlabored.
[2021-10-23] MEDS ORDERED: ONDANSETRON 4 MG/2 ML VIAL IVP ONE (18:40)
[2021-10-23] MEDS ORDERED: ESOM40EC PO (19:08)
[2021-10-23] MEDS ORDERED: ONDA-188 SL (19:08)
[2021-10-23] MEDS ORDERED: ATA25 PO (19:08)
--- NOTE | 2021-10-23 19:30 | NUR ---
pt given jello at this time for po challenge
--- NOTE | 2021-10-23 19:37 | NUR ---
Pt report given to Paola RN. Transfer of care at this time.
--- NOTE | 2021-10-23 19:55 | NUR ---
pt able to tolerate jello. ARABELLA BOSCH made aware.
--- NOTE | 2021-10-23 21:06 | NUR ---
IV removed, catheter intact and site benign. Applied folded 4x4 gauze and tape to stop bleeding.
[2021-10-23 21:08] VITALS: BP 109/55
--- NOTE | 2021-10-23 21:08 | NUR ---
Patient discharged. Written and verbal after care instructions given and explained. Patient alert, oriented and verbalized understanding of instructions. Ambulatory with steady gait. All questions addressed prior to discharge. ID band removed. Patient advised to follow up with PMD. Rx of ATARAX HCL, NEXIUM, & ZOFRAN ODT given. Patient educated on indication of medication including possible reaction and side effects. Opportunity to ask questions provided and answered.
== END 2021-10-23 21:08 | disposition home or self-care (01) ==
LOC: MED 15:41
DX: R10.30 Lower abdominal pain, unspecified (principal); R11.2 Nausea with vomiting, unspecified; R11.15 Cyclical vomiting syndrome unrelated to migraine; F12.90 Cannabis use, unspecified, uncomplicated; Z79.899 Other long term (current) drug therapy
CPT/HCPCS: 96361; 96374; 96375; 99284; J1200; J2270; J2405; J2765; J7030

== ENCOUNTER 2021-12-19 08:52 | Emergency (ER) | payer OTHER ==
[~2021-12-19] VITALS: Ht 172.7 cm; Wt 68.0 kg
[~2021-12-19 08:52] MED LIST changes: +ATA25 PO; +ESOM40EC PO
[2021-12-19 09:01] VITALS: BP 165/107
--- NOTE | 2021-12-19 09:05 | NUR ---
36 y/o female biba from home, c/o abd pain, n&v for 3 days. a&ox4, does not ambulates at this time due to pain. pt states she smoked marijuana 4 days ago and has been under going a lot fo at home stress and anxiety. / pain, abd round/guarding/soft/tender. pt states she has been seen by gi and dx with cyclic vomiting. pmh: cyclic vomiting nka med: zofran odt 4mg
[2021-12-19] MEDS ORDERED: NACL 0.9% 1,000 ML IV ONE (09:15)
[2021-12-19] MEDS ORDERED: HALOPERIDOL IM 5 MG/ML VIAL IM ONE (09:15)
[2021-12-19] MEDS ORDERED: METOCLOPRAMIDE 10 MG/2 ML INJ VIAL IVP ONE (09:15)
[2021-12-19] MEDS ORDERED: NACL 0.9% 1,000 ML IV SCH (09:15)
[2021-12-19] MEDS ORDERED: LORazepam 2 MG/ML VIAL IVP ONE (09:35)
[2021-12-19] MEDS ORDERED: FAMOTIDINE 20 MG/2 ML VIAL IVP ONE (09:35)
[2021-12-19 09:47] LABS: BASOPHILS # (AUTO) 0.1 K/uL (0.00-0.22); BASOPHILS % (AUTO) 0.6 % (0.0-2.0); EOSINOPHILS % (AUTO) 0.1 % (0.0-4.0); HEMOGLOBIN 16.4 g/dL (12.0-16.0); LYMPHOCYTES # (AUTO) 1.3 K/uL (2.5-16.5); LYMPHOCYTES % (AUTO) 14.2 % (20.5-51.1); MEAN CORPUSCULAR HEMOGLOBIN 30 pg (27-31); MEAN CORPUSCULAR HGB CONC 33 g/dL (33-37); MEAN CORPUSCULAR VOLUME 89.7 fL (80-94); MONOCYTES # (AUTO) 0.4 K/uL (0.8-1.0); MONOCYTES % (AUTO) 4.9 % (1.7-9.3); NEUTROPHILS # (AUTO) 7.3 K/uL (1.8-7.7); NEUTROPHILS % (AUTO) 80.2 % (42.2-75.2); PLATELET COUNT (AUTO) 225 K/uL (140-450); RED BLOOD CELL COUNT(AUTO) 5.46 MIL/uL (4.20-5.40); RED CELL DISTRIBUTION WIDTH 13.3 % (11.6-13.7); WHITE BLOOD COUNT (AUTO) 9.1 K/uL (4.8-10.8)
--- NOTE | 2021-12-19 09:56 | NUR ---
Patient appears to be resting comfortably in bed. Respirations even and unlabored.
[2021-12-19 10:34] LABS: ALBUMIN 4.1 g/dL (3.4-5.0); ANION GAP 16.1 (8-16); CARBON DIOXIDE 25.6 mmol/L (21-32); CREATININE 0.9 mg/dL (0.6-1.3); POTASSIUM 3.7 mmol/L (3.5-5.1); TOTAL BILIRUBIN 0.8 mg/dL (0.0-1.0)
[2021-12-19] MEDS ORDERED: METO-485 PO (13:06)
[2021-12-19 13:39] VITALS: BP 126/90
--- NOTE | 2021-12-19 13:39 | NUR ---
Patient discharged with v/s stable. Written and verbal after care instructions given and explained. Patient alert, oriented and verbalized understanding of instructions. Ambulatory with mother to car. All questions addressed prior to discharge. ID band removed. Patient advised to follow up with PMD. Rx of reglan (sent) given. Patient educated on indication of medication including possible reaction and side effects. Opportunity to ask questions provided and answered. work note given
== END 2021-12-19 13:39 | disposition home or self-care (01) ==
LOC: MED 08:52
DX: R11.2 Nausea with vomiting, unspecified (principal); E86.0 Dehydration; F41.9 Anxiety disorder, unspecified; K21.9 Gastro-esophageal reflux disease without esophagitis; Z98.890 Other specified postprocedural states; Z79.899 Other long term (current) drug therapy
CPT/HCPCS: 36415; 80053; 83690; 84703; 85025; 96361; 96372; 96374; 96375; 99284; J1630; J2060; J2765; J3490; J7030

== ENCOUNTER 2022-03-20 13:09 | Emergency (ER) | payer OTHER ==
[~2022-03-20] VITALS: Ht 172.7 cm; Wt 65.8 kg
[~2022-03-20 13:09] MED LIST changes: -ATA25 PO; -ESOM40EC PO; +FLUO10CA21 PO; +HYDR-1100 PO; -METR-435 PO; +ONDA-188 PO; -ONDA-188 SL
[2022-03-20 13:12] VITALS: BP 187/117
[2022-03-20] MEDS ORDERED: HALOPERIDOL IM 5 MG/ML VIAL IVP ONE (13:25)
[2022-03-20] MEDS ORDERED: diphenhydrAMINE 50 MG/ML VIAL IVP ONE (13:25)
[2022-03-20] MEDS ORDERED: NACL 0.9% 1,000 ML IV ONE (13:25)
--- NOTE | 2022-03-20 14:30 | NUR ---
36YO FEMALE PT BIBA HOME C/O N/V-blood XTODAY. PT W/ HX CYCLIC VOMIT SYNDROME AND REPORTS ONSET DUE TO RECENT INCREASED STRESSED AND ANXIETY. ABD CRAMPING ON VOMITING. STATES TAKING PROZAC AND ZOFRAN W/O RELIEF. DENIES DIARRHEA, FEVER, CHILLS, CHEST PAIN OR SOB. 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 HOB POSITIONED PER COMFORT. HX: CYCLIC VOMIT SYNDROME NKA Addendum: 03/20/22 at 1918 by PHSEP A6
[2022-03-20 14:40] LABS: MEAN CORPUSCULAR HEMOGLOBIN 30 pg (27-31); MEAN CORPUSCULAR HGB CONC 34 g/dL (33-37)
[2022-03-20 14:53] LABS: ANION GAP 13.3 (8-16); CARBON DIOXIDE 23.9 mmol/L (21-32); CREATININE 0.8 mg/dL (0.6-1.3); POTASSIUM 3.2 mmol/L (3.5-5.1); TOTAL BILIRUBIN 0.5 mg/dL (0.0-1.0)
[2022-03-20 14:58] LABS: HEMATOCRIT 40.9 % (36-48); HEMOGLOBIN 13.9 g/dL (12.0-16.0); MEAN CORPUSCULAR VOLUME 88.4 fL (80-94); RED BLOOD CELL COUNT(AUTO) 4.63 MIL/uL (4.20-5.40); WHITE BLOOD COUNT (AUTO) 15.6 K/uL (4.8-10.8)
[2022-03-20 14:59] LABS: PLATELET COUNT (AUTO) 193 K/uL (140-450); RED CELL DISTRIBUTION WIDTH 14.1 % (11.6-13.7)
[2022-03-20 15:02] LABS: LYMPHOCYTES % (MANUAL) 12 % (20-46); MONOCYTES % (MANUAL) 7 % (5-12)
[2022-03-20 15:43] LABS: LYMPHOCYTES % (MANUAL) 5 % (20-46); MONOCYTES % (MANUAL) 2 % (5-12)
--- NOTE | 2022-03-20 15:52 | NUR ---
pt at rest w/ eyes closed. in L lateral recumbant . on patient monitor. bed at lowest position, bed rails upx2
[2022-03-20] MEDS ORDERED: POTASSIUM CHLORIDE 10 MEQ TABER PO ONE (17:05)
--- NOTE | 2022-03-20 18:17 | NUR ---
US AT BEDSIDE
--- NOTE | 2022-03-20 19:21 | NUR ---
REPORT GIVEN TO JERZY RAMON. TRANSFER OF CARE AT THIS TIME
[2022-03-20] MEDS ORDERED: METO-485 PO (20:29)
[2022-03-20] MEDS ORDERED: PNV,1TAB PO (20:29)
[2022-03-20 20:59] VITALS: BP 115/56
--- NOTE | 2022-03-20 21:00 | NUR ---
Patient discharged with v/s stable. Written and verbal after care instructions given and explained. Patient alert, oriented and verbalized understanding of instructions. Ambulatory with steady gait. All questions addressed prior to discharge. ID band removed. Patient advised to follow up with PMD. Rx of SUSANNA LILLY PLUS given. Patient educated on indication of medication including possible reaction and side effects. Opportunity to ask questions provided and answered.
== END 2022-03-20 20:23 | disposition home or self-care (01) ==
LOC: MED 13:09
DX: O00.01 Abdominal pregnancy with intrauterine pregnancy (principal); E87.6 Hypokalemia; R11.2 Nausea with vomiting, unspecified; Z3A.01 Less than 8 weeks gestation of pregnancy
CPT/HCPCS: 36415; 76817; 80053; 81025; 83690; 84702; 84703; 85025; 96361; 96374; 96375; 99285; J1200; J1630; J7030; Q0092

== ENCOUNTER 2022-05-11 22:20 | Observation (INO) | payer OTHER ==
[~2022-05-11] VITALS: Ht 172.7 cm; Wt 67.1 kg
[2022-05-11 22:20] VITALS: BP 212/152
[~2022-05-11 22:20] MED LIST changes: +METO-485 PO; +PNV,1TAB PO
--- NOTE | 2022-05-11 22:26 | NUR ---
PT BROUGHT TO BED 12 VIA ADRIANNA LI
[2022-05-11] MEDS ORDERED: NACL 0.9% 1,000 ML IV ONE (22:55)
[2022-05-11] MEDS ORDERED: METOCLOPRAMIDE 10 MG/2 ML INJ VIAL IVP ONE (22:55)
[2022-05-11 23:06] LABS: APPEARANCE,URINE CLEAR (CLEAR); BILIRUBIN,URINE NEGATIVE (NEGATIVE); BLOOD, URINE NEGATIVE (NEGATIVE); COLOR,URINE YELLOW (YELLOW); LEUKOCYTE ESTERASE ,URINE NEGATIVE (NEGATIVE); NITRITE, URINE NEGATIVE (NEGATIVE); UGLUCOSE NEGATIVE (NEGATIVE)
[2022-05-11 23:44] LABS: BASOPHILS # (AUTO) 0.1 K/uL (0.00-0.22); BASOPHILS % (AUTO) 0.7 % (0.0-2.0); HEMATOCRIT 48.6 % (36-48); HEMOGLOBIN 16.4 g/dL (12.0-16.0); LYMPHOCYTES # (AUTO) 1.8 K/uL (2.5-16.5); LYMPHOCYTES % (AUTO) 15.3 % (20.5-51.1); MEAN CORPUSCULAR HEMOGLOBIN 30 pg (27-31); MEAN CORPUSCULAR HGB CONC 34 g/dL (33-37); MEAN CORPUSCULAR VOLUME 89.2 fL (80-94); MONOCYTES # (AUTO) 0.8 K/uL (0.8-1.0); MONOCYTES % (AUTO) 6.8 % (1.7-9.3); NEUTROPHILS # (AUTO) 8.9 K/uL (1.8-7.7); NEUTROPHILS % (AUTO) 77.2 % (42.2-75.2); PLATELET COUNT (AUTO) 247 K/uL (140-450); RED BLOOD CELL COUNT(AUTO) 5.45 MIL/uL (4.20-5.40); RED CELL DISTRIBUTION WIDTH 13.9 % (11.6-13.7); WHITE BLOOD COUNT (AUTO) 11.5 K/uL (4.8-10.8)
[2022-05-11] MEDS ORDERED: METOCLOPRAMIDE 10 MG/2 ML INJ VIAL ONE (23:56)
[2022-05-12] MEDS ORDERED: METOCLOPRAMIDE 10 MG/2 ML INJ VIAL ONE (00:07)
[2022-05-12] MEDS ORDERED: NACL 0.9% 1,000 ML IV ONE (00:15)
[2022-05-12] MEDS ORDERED: HALOPERIDOL IM 5 MG/ML VIAL IVP ONE ×2 (00:30→04:20)
[2022-05-12 00:41] LABS: ALBUMIN 4.3 g/dL (3.4-5.0); ANION GAP 12.3 (8-16); CARBON DIOXIDE 27.4 mmol/L (21-32); POTASSIUM 2.7 mmol/L (3.5-5.1); TOTAL BILIRUBIN 1.1 mg/dL (0.0-1.0)
--- NOTE | 2022-05-12 00:58 | NUR ---
Pt to CT
[2022-05-12] MEDS ORDERED: KCL 20 MEQ IN 100 mL PREMIX 100 ML IV ONE (02:00)
[2022-05-12] MEDS ORDERED: POTASSIUM CHLORIDE 10 MEQ TABER PO ONE (02:00)
[2022-05-12] MEDS ORDERED: MORPHINE SULFATE 4 MG/ML SYR IVP PRN (05:50)
[2022-05-12] MEDS ORDERED: ACETAMINOPHEN 325 MG TAB PO PRN (05:50)
[2022-05-12] MEDS ORDERED: NACL 0.9% 1,000 ML IV SCH (05:50)
[2022-05-12] MEDS ORDERED: ONDANSETRON 4 MG/2 ML VIAL IVP PRN (05:50)
[2022-05-12] MEDS ORDERED: MAGNESIUM OXIDE 400 MG TAB PO PRN (05:50)
[2022-05-12] MEDS ORDERED: POTASSIUM CHLORIDE 10 MEQ TABER PO PRN (05:50)
[2022-05-12] MEDS ORDERED: HYDROcodone/APAP 5/325 MG 1 TAB TAB PO PRN (05:50)
[2022-05-12] MEDS ORDERED: LORazepam 2 MG/ML VIAL IVP SCH (05:55)
[2022-05-12] MEDS ORDERED: LORazepam 2 MG/ML VIAL IVP PRN (05:55)
[2022-05-12] MEDS ORDERED: hydrALAZINE 20 MG/ML VIAL IVP PRN (05:55)
[2022-05-12 06:42] LABS: MAGNESIUM 1.9 mg/dL (1.8-2.4); PHOSPHORUS 2.4 mg/dL (2.5-4.9)
--- NOTE | 2022-05-12 08:00 | NUR ---
Patient's Plan of Care was discussed and reviewed with SUPERVISING FLOORPERSON:
--- NOTE | 2022-05-12 08:31 | NUR ---
Report given to receiving RN. VSS. Pt aware and agreeable to admission. Pt transported with belongings via gurney.
--- NOTE | 2022-05-12 08:50 | NUR ---
PT ARRIVED IN THE UNIT, REORIENTED TO ROOM ASSESSMENT DONE PT IV FLOWING ORDERED PT IN TEL MONITOR V.S OBTAINED FOR NOW PT DENIES OF PAIN OR N/V .NPO EXCEPT MED.[id number]
[2022-05-12] MEDS ORDERED: KCL 20 MEQ IN 100 mL PREMIX 200 ML IV ONE (11:55)
[2022-05-12 12:00] VITALS: BP 145/70
--- NOTE | 2022-05-12 12:18 | NUR ---
HELD THE POTASSIUM 40MEQ PO C/0 PT HAD IN ER BOTH PO AND IV POTASSIUM PLACEMENT.[id number]
--- NOTE | 2022-05-12 13:20 | NUR ---
PT SIGNED AMA , NOTIFIED , IV,ID BAND AND TELE MONITOR REMOVED, PT DRESSED SELF AND LEFT SAYING THAT HER SON SICK THAT SHE NEED TO ATTEND TO HIM.[id number]
== END 2022-05-12 15:20 | disposition left against medical advice (07) ==
LOC: MED 22:20 → MTU 05-12 05:52
PROVIDERS: ADMIT Hospitalist; ATTEND Hospitalist
DX: R11.15 Cyclical vomiting syndrome unrelated to migraine (principal); Z20.822 Contact with and (suspected) exposure to COVID-19; D25.9 Leiomyoma of uterus, unspecified; E87.6 Hypokalemia; E86.0 Dehydration; F41.8 Other specified anxiety disorders; F12.90 Cannabis use, unspecified, uncomplicated; Z79.899 Other long term (current) drug therapy; Z87.59 Personal history of other complications of pregnancy, childbirth and the puerperium
CPT/HCPCS: 36415; 74177; 76830; 80053; 81003; 83690; 83735; 84100; 84702; 84703; 85025; 87081; 87426; 96361; 96365; 96366; 96372; 96375; 96376; 99285; G0378; J1630; J1644; J2765; J3480; Q0092; Q9967

== ENCOUNTER 2022-06-26 16:49 | Emergency (ER) | payer OTHER ==
[~2022-06-26] VITALS: Ht 177.8 cm; Wt 65.8 kg
[2022-06-26 16:53] VITALS: BP 123/75
[2022-06-26] MEDS ORDERED: METOCLOPRAMIDE 10 MG/2 ML INJ VIAL IVP ONE (16:55)
[2022-06-26] MEDS ORDERED: DEXT 5% /NACL 0.9% 1,000 ML IV ONE (16:55)
--- NOTE | 2022-06-26 17:20 | NUR ---
36 YEARS OLD FEMALE BIBA FROM HOME WITH NAUSEA FOR 3 DAYS.
[2022-06-26 17:25] LABS: BASOPHILS # (AUTO) 0.1 K/uL (0.00-0.22); EOSINOPHILS % (AUTO) 0.1 % (0.0-4.0); HEMATOCRIT 48.2 % (36-48); LYMPHOCYTES # (AUTO) 2.4 K/uL (2.5-16.5); LYMPHOCYTES % (AUTO) 19.2 % (20.5-51.1); MEAN CORPUSCULAR HEMOGLOBIN 30 pg (27-31); MEAN CORPUSCULAR HGB CONC 33 g/dL (33-37); MEAN CORPUSCULAR VOLUME 90.2 fL (80-94); MONOCYTES # (AUTO) 0.7 K/uL (0.8-1.0); NEUTROPHILS # (AUTO) 9.1 K/uL (1.8-7.7); NEUTROPHILS % (AUTO) 73.7 % (42.2-75.2); PLATELET COUNT (AUTO) 273 K/uL (140-450); RED BLOOD CELL COUNT(AUTO) 5.34 MIL/uL (4.20-5.40); RED CELL DISTRIBUTION WIDTH 13.3 % (11.6-13.7); WHITE BLOOD COUNT (AUTO) 12.4 K/uL (4.8-10.8)
[2022-06-26 17:56] LABS: ALBUMIN 3.8 g/dL (3.4-5.0); ANION GAP 9.4 (8-16); CARBON DIOXIDE 30.8 mmol/L (21-32); CREATININE 1.3 mg/dL (0.6-1.3); POTASSIUM 3.2 mmol/L (3.5-5.1); TOTAL BILIRUBIN 0.6 mg/dL (0.0-1.0)
[2022-06-26] MEDS ORDERED: KCL 20 MEQ IN 100 mL PREMIX 100 ML IV ONE (18:35)
--- NOTE | 2022-06-26 19:17 | NUR ---
PATIENT RESTING NO NAUSEA VOMITING VSS REPORT ENDORSED TO NURSE DARCIE ALL QUESTIONS ANSWERED.
--- NOTE | 2022-06-26 20:20 | NUR ---
Food and water offered and patient able to tolerate with no c/o nausea and vomiting. ERMD was at bedside and aware.
[2022-06-26] MEDS ORDERED: METO-485 PO (20:52)
[2022-06-26 21:29] VITALS: BP 138/95
--- NOTE | 2022-06-26 21:29 | NUR ---
Patient discharged with v/s stable. Written and verbal after care instructions given and explained. New rx reglan. Patient verbalized understanding. Ambulatory with steady gait. All questions addressed prior to discharge. Advised to follow up with PMD.
== END 2022-06-26 21:29 | disposition home or self-care (01) ==
LOC: MED 16:49
DX: R11.15 Cyclical vomiting syndrome unrelated to migraine (principal); E87.6 Hypokalemia; F41.9 Anxiety disorder, unspecified; R10.84 Generalized abdominal pain; Z79.899 Other long term (current) drug therapy
CPT/HCPCS: 36415; 80053; 83690; 84703; 85025; 93005; 96361; 96365; 96366; 96375; 99284; J2765; J3480

== ENCOUNTER 2022-11-30 10:06 | Emergency (ER) | payer OTHER ==
[~2022-11-30] VITALS: Ht 172.7 cm; Wt 61.2 kg
[2022-11-30 10:09] VITALS: BP 188/145; PULSE 115; RESP 20; TEMP 98; O2SAT 98
[2022-11-30 10:29] VITALS: O2SAT 98
[2022-11-30] MEDS ORDERED: ENALAPRILAT 2.5 MG/2 ML VIAL IVP ONE ×2 (10:40→12:30)
[2022-11-30] MEDS ORDERED: MORPHINE SULFATE 4 MG/ML SYR IVP ONE (10:40)
[2022-11-30] MEDS ORDERED: ONDANSETRON 4 MG/2 ML VIAL IVP ONE (10:40)
[2022-11-30] MEDS ORDERED: NACL 0.9% 1,000 ML IV ONE ×2 (10:40→12:30)
[2022-11-30 11:27] LABS: BASOPHILS # (AUTO) 0.1 K/uL (0.00-0.22); BASOPHILS % (AUTO) 0.7 % (0.0-2.0); EOSINOPHILS % (AUTO) 0.1 % (0.0-4.0); HEMATOCRIT 48.8 % (36-48); HEMOGLOBIN 16.4 g/dL (12.0-16.0); LYMPHOCYTES # (AUTO) 2.1 K/uL (2.5-16.5); LYMPHOCYTES % (AUTO) 16.6 % (20.5-51.1); MEAN CORPUSCULAR HEMOGLOBIN 30 pg (27-31); MEAN CORPUSCULAR HGB CONC 34 g/dL (33-37); MEAN CORPUSCULAR VOLUME 89.6 fL (80-94); MONOCYTES # (AUTO) 0.9 K/uL (0.8-1.0); NEUTROPHILS # (AUTO) 9.6 K/uL (1.8-7.7); NEUTROPHILS % (AUTO) 75.6 % (42.2-75.2); PLATELET COUNT (AUTO) 279 K/uL (140-450); RED BLOOD CELL COUNT(AUTO) 5.45 MIL/uL (4.20-5.40); RED CELL DISTRIBUTION WIDTH 13.4 % (11.6-13.7); WHITE BLOOD COUNT (AUTO) 12.7 K/uL (4.8-10.8)
[2022-11-30 11:49] LABS: INR 0.99 (0.8-1.2); PARTIAL THROMBOPLASTIN TIME 28.9 secs (22-35.6); PROTHROMBIN TIME 10.4 secs (10.8-13.4)
[2022-11-30 11:53] LABS: ALANINE AMINOTRANSFERASE 18 U/L (12-78); ALBUMIN 4.3 g/dL (3.4-5.0); ALKALINE PHOSPHATASE 71 U/L (50-136); ANION GAP 12.7 (8-16); ASPARTATE AMINOTRANSFERASE 13 U/L (15-37); CALCIUM 9.8 mg/dL (8.5-10.1); CARBON DIOXIDE 26.6 mmol/L (21-32); CHLORIDE 95 mmol/L (98-107); CREATININE 1.1 mg/dL (0.6-1.3); GFR ARICAN-AMERICAN 73 mL/min (>90); GFR NON ARICAN-AMERICAN 60 mL/min (>90); GLUCOSE 154 mg/dL (74-106); LIPASE 21 U/L (16-77); POTASSIUM 3.3 mmol/L (3.5-5.1); SODIUM SERUM 131 mmol/L (136-145); TOTAL BILIRUBIN 0.8 mg/dL (0.0-1.0); TOTAL PROTEIN, SERUM 8.2 g/dL (6.4-8.2); UREA NITROGEN, BLOOD 15 mg/dL (7-18)
[2022-11-30] MEDS ORDERED: POTASSIUM CHLORIDE 10 MEQ TABER PO ONE (12:30)
[2022-11-30 12:31] LABS: BILIRUBIN,URINE NEGATIVE (NEGATIVE); BLOOD, URINE NEGATIVE (NEGATIVE); COLOR,URINE YELLOW (YELLOW); LEUKOCYTE ESTERASE ,URINE NEGATIVE (NEGATIVE); NITRITE, URINE NEGATIVE (NEGATIVE); PH,URINE 8.5 (5.0-9.0); PROTEIN,URINE 2+ (NEGATIVE); UGLUCOSE TRACE (NEGATIVE)
[2022-11-30 12:37] LABS: APPEARANCE,URINE SLIGHTLY HAZY (CLEAR)
[2022-11-30 12:38] LABS: BACTERIA,URINE OCCASSIONAL /HPF (None Seen); RBC,URINE 0-5 /HPF (0-5); WBC,URINE 0-5 /HPF (0-5)
[2022-11-30] MEDS ORDERED: ATA25 PO (14:09)
[2022-11-30] MEDS ORDERED: CARV12.5 PO (14:09)
[2022-11-30] MEDS ORDERED: [UNRECOGNIZED DRUG - CODE] PO (14:09)
[2022-11-30] MEDS ORDERED: ONDA-188 PO (14:09)
[2022-11-30] MEDS ORDERED: FAMO-92 PO (14:09)
[2022-11-30 14:51] VITALS: BP 111/72; PULSE 87; RESP 12; TEMP 98; O2SAT 98
== END 2022-11-30 14:52 | disposition home or self-care (01) ==
LOC: MED 10:06
DX: R10.84 Generalized abdominal pain (principal); R11.15 Cyclical vomiting syndrome unrelated to migraine; K59.00 Constipation, unspecified; F12.90 Cannabis use, unspecified, uncomplicated; E87.6 Hypokalemia; I16.0 Hypertensive urgency; Z79.899 Other long term (current) drug therapy
CPT/HCPCS: 36415; 71045; 74176; 80053; 81001; 81025; 83690; 84484; 84703; 85025; 85610; 85730; 93005; 96361; 96374; 96375; 99285; J2270; J2405; J3490; J7030

== ENCOUNTER 2023-01-18 18:10 | Emergency (ER) | payer OTHER ==
[~2023-01-18] VITALS: Ht 162.6 cm; Wt 65.8 kg
[~2023-01-18 18:10] MED LIST changes: +ATA25 PO; +CARV12.5 PO; +FAMO-92 PO; +[UNRECOGNIZED DRUG - CODE] PO
[2023-01-18 18:56] VITALS: BP 115/68; PULSE 99; RESP 17; TEMP 97.4; O2SAT 98
[2023-01-18] MEDS ORDERED: METOCLOPRAMIDE 10 MG/2 ML INJ VIAL IVP ONE (20:20)
[2023-01-18] MEDS ORDERED: diphenhydrAMINE 50 MG/ML VIAL IVP ONE (20:20)
[2023-01-18] MEDS: NACL 0.9% 1,000 ML IV SCH ×2 (20:30→22:38)
[2023-01-18 22:15] LABS: BASOPHILS # (AUTO) 0.1 K/uL (0.00-0.22); BASOPHILS % (AUTO) 0.4 % (0.0-2.0); HEMATOCRIT 43.7 % (36-48); HEMOGLOBIN 14.5 g/dL (12.0-16.0); LYMPHOCYTES # (AUTO) 1.1 K/uL (2.5-16.5); LYMPHOCYTES % (AUTO) 9.7 % (20.5-51.1); MEAN CORPUSCULAR HEMOGLOBIN 29 pg (27-31); MEAN CORPUSCULAR HGB CONC 33 g/dL (33-37); MEAN CORPUSCULAR VOLUME 87.9 fL (80-94); MONOCYTES # (AUTO) 0.8 K/uL (0.8-1.0); MONOCYTES % (AUTO) 6.7 % (1.7-9.3); NEUTROPHILS # (AUTO) 9.7 K/uL (1.8-7.7); NEUTROPHILS % (AUTO) 83.2 % (42.2-75.2); PLATELET COUNT (AUTO) 206 K/uL (140-450); RED BLOOD CELL COUNT(AUTO) 4.98 MIL/uL (4.20-5.40); RED CELL DISTRIBUTION WIDTH 14.1 % (11.6-13.7); WHITE BLOOD COUNT (AUTO) 11.6 K/uL (4.8-10.8)
[2023-01-18 22:32] LABS: ALBUMIN 3.8 g/dL (3.4-5.0); ANION GAP 13.5 (8-16); CALCIUM 8.4 mg/dL (8.5-10.1); CARBON DIOXIDE 26.9 mmol/L (21-32); POTASSIUM 3.4 mmol/L (3.5-5.1); TOTAL BILIRUBIN 0.6 mg/dL (0.0-1.0); TOTAL PROTEIN, SERUM 7.5 g/dL (6.4-8.2)
[2023-01-19] MEDS ORDERED: HALOPERIDOL IM 5 MG/ML VIAL IM ONE (00:40)
[2023-01-19 03:00] VITALS: BP 142/101; PULSE 79; RESP 16; O2SAT 98
[2023-01-19] MEDS ORDERED: METO-486 PO (05:29)
[2023-01-19] MEDS ORDERED: MIRABULK PO (05:29)
[2023-01-19 07:28] LABS: APPEARANCE,URINE CLEAR (CLEAR); BILIRUBIN,URINE NEGATIVE (NEGATIVE); BLOOD, URINE NEGATIVE (NEGATIVE); COLOR,URINE YELLOW (YELLOW); LEUKOCYTE ESTERASE ,URINE NEGATIVE (NEGATIVE); NITRITE, URINE NEGATIVE (NEGATIVE); PH,URINE 6.5 (5.0-9.0); PROTEIN,URINE TRACE (NEGATIVE); UGLUCOSE NEGATIVE (NEGATIVE); UROBILINOGEN,URINE 0.2 EU/dL (0.2 - 1)
[2023-01-19 07:39] LABS: AMPHETAMINE, URINE NEGATIVE ng/ml (NEG <=1000); BARBITURATE, URINE NEGATIVE ng/ml (NEG <=200); BENZODIAZEPINE, URINE NEGATIVE ng/mL (NEG <=200); CANNABINOID, URINE POSITIVE ng/mL (NEG <=50); COCAINE, URINE NEGATIVE ng/mL (NEG <=300); OPIATE, URINE NEGATIVE ng/mL (NEG <=2000); PHENCYCLIDINE SCREEN,URINE NEGATIVE ng/mL (NEG <=25)
== END 2023-01-19 08:07 | disposition home or self-care (01) ==
LOC: MED 18:10
DX: R11.15 Cyclical vomiting syndrome unrelated to migraine (principal); K59.00 Constipation, unspecified; I10 Essential (primary) hypertension; Z79.899 Other long term (current) drug therapy
CPT/HCPCS: 36415; 74177; 80053; 80305; 81003; 81025; 83690; 84484; 84703; 85025; 93005; 96361; 96372; 96374; 96375; 99285; J1200; J1630; J2765; J7030; Q9967

== ENCOUNTER 2023-10-07 16:57 | Emergency (ER) | payer OTHER ==
[~2023-10-07] VITALS: Ht 182.9 cm; Wt 77.1 kg
[~2023-10-07 16:57] MED LIST changes: +METO-486 PO; +MIRABULK PO
[2023-10-07 17:01] VITALS: BP 180/110; PULSE 100; RESP 20; TEMP 98.2; O2SAT 98
[2023-10-07] MEDS ORDERED: ONDA8TAB87 PO (17:22)
[2023-10-07] MEDS ORDERED: IBUP-2213 PO (17:22)
[2023-10-07] MEDS: ONDANSETRON 4 MG/2 ML VIAL IVP ONE (17:47)
[2023-10-07] MEDS: NACL 0.9% 1,000 ML IV ONE (17:47)
[2023-10-07] MEDS: KETOROLAC 30 MG/ML VIAL IVP ONE (17:48)
[2023-10-07 18:11] VITALS: BP 132/92; PULSE 98; RESP 21; TEMP 99.1; O2SAT 100
== END 2023-10-07 19:54 | disposition home or self-care (01) ==
LOC: MED 16:57
DX: R10.13 Epigastric pain (principal); R11.2 Nausea with vomiting, unspecified; R42 Dizziness and giddiness; I10 Essential (primary) hypertension; Z98.890 Other specified postprocedural states; Z79.899 Other long term (current) drug therapy
CPT/HCPCS: 96361; 96374; 96375; 99284; J1885; J2405; J7030